=== PATIENT | male | born 1950 | race Caucasian/White ===

== ENCOUNTER 2016-07-06 01:50 | Inpatient (IN) | payer OTHER, BC ==
[~2016-07-06] VITALS: Ht 167.6 cm; Wt 85.7 kg
[~2016-07-06 01:50] MED LIST: INSU10SU8 SUBQ; METO50TE2 PO; NIFE60TE5 PO; SACC250C4 PO; [UNRECOGNIZED DRUG - CODE] PO
--- NOTE | 2016-07-06 01:51 | NUR ---
PRAVIN ALS TO ER BED 1
[2016-07-06 02:01] VITALS: BP 165/96
--- NOTE | 2016-07-06 02:20 | NUR ---
65/M BIBA C/O SOB, HE WOKEUP WITH NIGHT SWEATS, NO CHEST PAIN NOTED, SEEN IN [facility] LAST WEEK AND DX, PNA. AAOx4, BREATHING EVEN AND EFFORTLESS. PT STATES NO PAIN AT THIS TIME. ERMD NOTIFIED OF PATIENT STATUS.
[2016-07-06 02:23] LABS: BASOPHILS # (AUTO) 0.3 K/uL (0.00-0.22); BASOPHILS % (AUTO) 2.4 % (0.0-2.0); EOSINOPHILS # (AUTO) 1.1 K/uL (0-0.4); EOSINOPHILS % (AUTO) 9.7 % (0.0-4.0); HEMATOCRIT 34.9 % (36-52); HEMOGLOBIN 11.3 g/dL (12.0-18.0); LYMPHOCYTES # (AUTO) 1.4 K/uL (2.0-11.5); LYMPHOCYTES % (AUTO) 13.1 % (20.5-51.1); MEAN CORPUSCULAR HEMOGLOBIN 34 pg (27-31); MEAN CORPUSCULAR HGB CONC 32 g/dL (33-37); MEAN CORPUSCULAR VOLUME 106 fL (80-94); MONOCYTES # (AUTO) 1.3 K/uL (0.8-1.0); MONOCYTES % (AUTO) 11.6 % (1.7-9.3); NEUTROPHILS # (AUTO) 6.9 K/uL (1.8-7.7); NEUTROPHILS % (AUTO) 63.2 % (42.2-75.2); PLATELET COUNT (AUTO) 305 K/uL (140-450); RED BLOOD CELL COUNT(AUTO) 3.31 MIL/uL (4.20-6.10); RED CELL DISTRIBUTION WIDTH 14.6 % (11.6-13.7)
--- NOTE | 2016-07-06 02:27 | NUR ---
PT REFUSES TO HAVE BEDRAILS UP. CHARGE NURSE NOTIFIED.
[2016-07-06 02:37] LABS: ALBUMIN 3.7 g/dL (3.4-5.0); ANION GAP 15.1 (8-16); CALCIUM 8.5 mg/dL (8.5-10.1); CARBON DIOXIDE 27.1 mmol/L (21-32); POTASSIUM 4.2 mmol/L (3.5-5.1); TOTAL BILIRUBIN 0.3 mg/dL (0.0-1.0)
[2016-07-06 02:38] LABS: INR 1.1 (0.8-1.2); PARTIAL THROMBOPLASTIN TIME 29.4 secs (22-35.6)
[2016-07-06 02:45] LABS: CREATININE 8.3 mg/dL (0.6-1.3)
--- NOTE | 2016-07-06 02:45 | NUR ---
Patient being evaluated by physician at bedside.
[2016-07-06] MEDS ORDERED: METOPROLOL 50 MG TAB PO ONE (02:50)
[2016-07-06] MEDS ORDERED: hydrALAZINE 20 MG/ML VIAL IVP ONE (02:50)
[2016-07-06] MEDS ORDERED: CEFEPIME 1,000 MG in DEXTROSE 5% 50 ML IV ONE (02:55)
[2016-07-06] MEDS ORDERED: LEVOFLOXACIN 750 MG/D5W PREMIX 150 ML IV ONE (02:55)
[2016-07-06] MEDS ORDERED: CEFEPIME 1,000 MG VIAL ONE (03:17)
[2016-07-06 03:28] LABS: LACTIC ACID 1.3 mmol/L (0.4-2.0)
[2016-07-06] MEDS ORDERED: ALBUTEROL SULFATE/IPRATROPIU 3 ML SOL IH ONE (03:30)
--- NOTE | 2016-07-06 03:34 | NUR ---
TAKE PT. TO CT
--- NOTE | 2016-07-06 04:40 | NUR ---
PT RESTING.PT STABLE. DENIES ANY PAIN AT THIS TIME. WILL CONTINUE TO MONITOR.
--- NOTE | 2016-07-06 05:35 | NUR ---
PATIENT RESTING; VSS; PATIENT POSITIONED FOR COMFORT; HOB ELEVATED; BEDRAILS UP X2; BED DOWN. ER MD MADE AWARE OF PT STATUS.
[2016-07-06] MEDS ORDERED: HYDROcodone/APAP 5/325 MG 1 TAB TAB PO PRN (06:20)
[2016-07-06] MEDS ORDERED: DEXTROSE 50% 50 ML SYR IVP PRN (06:20)
[2016-07-06] MEDS ORDERED: LORazepam 2 MG/ML VIAL IVP PRN (06:20)
--- NOTE | 2016-07-06 06:59 | NUR ---
Note michelet in EDM - 07/06/16 at 0709 by KEAGAN Patient will be admitted to care of DR. REGALADO. Admited to TELE. Will go to room 121B. Belongings list completed. Report to IMANI MANLEY.
--- NOTE | 2016-07-06 07:09 | NUR ---
Patient will be admitted to care of DR JEREZ. Admited to TELE. Will go to room 118. Belongings list completed. Report to IMANI MANLEY.
[2016-07-06 08:00] VITALS: BP 167/79
--- NOTE | 2016-07-06 08:00 | NUR ---
Admitted from ED, with chief complaint of SOB , 65 y/o ,Male, Cooperative, oriented to call light, bed, phone,television, bathroom, smoking policy, visiting hours, procedures, ID bracelet on. Belongings list checked. breathing even and unlabored. pt on room air. with iv heplock on right posterior forearm g20. denies any pain or discomfort at this time. positive bowel sounds on four quadrants. no complaints on bladder and bowel elimination. pt independent, able to take care of self. av shunt noted on left upper chest. dry scab and healed abrasion noted on right marks. safety precaution in place, call light within reach.
--- NOTE | 2016-07-06 08:01 | NUR ---
ATTEMPTED TO OBTAINED SPUTUM SAMPLE, PT UNABLE TO PRODUCE ANY PHLEGM STATES HE DOES NOT HAVE A COUGH. B.S CLEAR BILATERALLY. SPECIMEN CUP AT PT BEDSIDE AND PT AWARE OF NEED FOR SPECIMEN.
--- NOTE | 2016-07-06 08:08 | NUR ---
PATIENT HAS BEEN SCREENED AND CATEGORIZED MODERATE NUTRITION RISK. PATIENT WILL BE SEEN WITHIN 3-5 DAYS OF ADMISSION. 07/08/16-07/10/[address]
[2016-07-06] MEDS: BLOOD GLUCOSE MONITORING 1 DEV DEV FS SCH ×4 (08:27→21:16)
--- NOTE | 2016-07-06 08:40 | NUR ---
SPOKE TO MILAN GALEAS AT ACUTE DIALYSIS AND MADE HER AWARE OF PT'S SCHEDULE FOR HD TODAY.
[2016-07-06] MEDS: INSULIN NPH HUM/REG INSULIN HM 100 UNIT/ML 10 ML VIAL SQ SCH ×2 (09:00→21:00)
[2016-07-06] MEDS: NIFEdipine 60 MG TABER PO SCH (09:00)
[2016-07-06] MEDS: METOPROLOL SUCCINATE 50 MG TABER PO SCH (09:00)
[2016-07-06 12:00] VITALS: BP 148/72
--- NOTE | 2016-07-06 12:00 | NUR ---
PHOTO TAKEN ON RIGHT GLEASON DRY SCAB AND RIGHT FOOT ABRASION (NO DRAINAGE), OPEN TO AIR.
[2016-07-06] MEDS ORDERED: LOPERAMIDE 2 MG CAP PO PRN (12:35)
[2016-07-06] MEDS: INSULIN LISPRO SLIDING SCALE 100 UNITS/ML VIAL SUBQ PRN ×2 (12:43→21:15)
[2016-07-06] MEDS ORDERED: LORATADINE 10 MG TAB PO SCH (12:48)
--- NOTE | 2016-07-06 13:00 | NUR ---
HEMODIALYSIS STARTED AT THE BEDSIDE. PT AWAKE, ALERT, WATCHING TV. NO SOB NOTED.
[2016-07-06] MEDS: FLUTICASONE NASAL 50 MCG/ACTUATION 16 GM BTL NS SCH (14:33)
[2016-07-06] MEDS ORDERED: PNEUMOCOCCAL VACCINE 23 MCG/0.5 ML VIAL IMVAC SCH (14:50)
[2016-07-06 16:00] VITALS: BP 117/65
--- NOTE | 2016-07-06 16:30 | NUR ---
DIALYSIS DONE WITH 2L OUTPUT. VITAL SIGNS STABLE. PT ASLEEP. NO SOB NOTED.
[2016-07-06] MEDS: ONDANSETRON 4 MG/2 ML VIAL IVP PRN (18:32)
[2016-07-06] MEDS: ACETAMINOPHEN 325 MG TAB PO PRN (19:10)
--- NOTE | 2016-07-06 19:12 | NUR ---
RECEIVED PT REPORT FROM CARI Alexandre RN AND MIRTHA DIALLO ORIENTEE, FOR PT CONTINUITY OF CARE AT PT BEDSIDE. PT NOTED STABLE WATCHING TV. NO S/S OF ACUTE DISTRESS. CALL LIGHT WITHIN REACH.
--- NOTE | 2016-07-06 19:30 | NUR ---
PT ENDORSED TO IMANI PASTOR. PT ON STABLE CONDITION.
--- NOTE | 2016-07-06 19:42 | NUR ---
SHIFT ASSESSMENT DONE AT THIS TIME. PT IS A/O X4, ON S/S OF ACUTE DISTRESS. DISCUSSED PLAN OF CARE WITH PT, VERBALIZED UNDERSTANDING. PT ABLE TO FOLLOW COMMANDS AND VERBALIZE NEEDS. VITAL SIGNS ARE STABLE, PT ON ROOM AIR WITH OXYGEN SATURATION AT 95%. PT DENIES N/V/D, SOB AND OR CHEST PAIN. PT IS AFEBRILE. LUNG SOUNDS ARE CLEAR AND BOWEL SOUNDS ARE ACTIVE. IV ACCESS TO RT FOREARM #20G, PATENT AND INTACT. PT HAS LEFT AV SHUNT TO LEFT UPPER ARM, POSITIVE FOR THRILL AND BRUIT, SIGN POSTED. SKIN INTACT, ONLY NOTED DRY SCAB TO LEFT LOWER LEG, DRY AND INTACT. DISCUSSED PLAN OF CARE WITH PT, VERBALIZED UNDERSTANDING. CALL LIGHT WITHIN EASY REACH. WILL CONTINUE TO MONITOR.
[2016-07-06 20:00] VITALS: BP 110/63
--- NOTE | 2016-07-06 21:16 | NUR ---
PT REFUSED HUMILIN 70/30 INSULIN AT THIS TIME. PT BLOOD GLUCOSE IS 220, REQUESTED ONLY HUMALOG PER SLIDING SCALE. PROVIDED INSULIN HUMALOG PER MD ORDERS, SEE eMAR. PT IS ASYMPTOMATIC. NO S/S OF ACUTE DISTRESS NOTED. CALL LIGHT WITHIN REACH.
--- NOTE | 2016-07-06 22:00 | NUR ---
DR. ROBERTS AT PT BEDSIDE, UPDATE GIVEN TO DR. ROBERTS. NO NEW ORDERS RECEIVED.
[2016-07-07] VITALS: BP 125/59
--- NOTE | 2016-07-07 00:20 | NUR ---
PT VITAL SIGNS REMAIN STABLE, NO S/S OF ACUTE DISTRESS NOTED, PT DENIES CHEST PAIN OR SOB. CALL LIGHT WITHIN EASY REACH. Addendum: 07/07/16 at 0116 by Tania Caldwell RN ALSO PT IS NOW ON NASAL CANNULA. OXYGEN SATURATION NOTED AT 97%.
--- NOTE | 2016-07-07 02:24 | NUR ---
PT NOTED SLEEPING WELL, NO ACUTE DISTRESS NOTED. CALL LIGHT WITHIN REACH. NASAL CANNULA STILL IN PLACE.
[2016-07-07 04:00] VITALS: BP 146/73
--- NOTE | 2016-07-07 04:10 | NUR ---
VITAL SIGNS REMAIN STABLE, NO S/S OF ACUTE DISTRESS. CALL LIGHT STILL IN REACH.
[2016-07-07 06:03] LABS: BASOPHILS # (AUTO) 0.1 K/uL (0.00-0.22); BASOPHILS % (AUTO) 1.2 % (0.0-2.0); EOSINOPHILS # (AUTO) 0.5 K/uL (0-0.4); HEMATOCRIT 39.2 % (36-52); HEMOGLOBIN 12.8 g/dL (12.0-18.0); LYMPHOCYTES # (AUTO) 1.2 K/uL (2.0-11.5); LYMPHOCYTES % (AUTO) 11.3 % (20.5-51.1); MEAN CORPUSCULAR HEMOGLOBIN 35 pg (27-31); MEAN CORPUSCULAR HGB CONC 33 g/dL (33-37); MEAN CORPUSCULAR VOLUME 106 fL (80-94); MONOCYTES % (AUTO) 9.2 % (1.7-9.3); NEUTROPHILS # (AUTO) 7.6 K/uL (1.8-7.7); NEUTROPHILS % (AUTO) 73.3 % (42.2-75.2); PLATELET COUNT (AUTO) 299 K/uL (140-450); RED BLOOD CELL COUNT(AUTO) 3.69 MIL/uL (4.20-6.10); RED CELL DISTRIBUTION WIDTH 15.1 % (11.6-13.7); WHITE BLOOD COUNT (AUTO) 10.4 K/uL (4.8-10.8)
[2016-07-07 06:26] LABS: ANION GAP 11.9 (8-16); CALCIUM 8.3 mg/dL (8.5-10.1); CARBON DIOXIDE 30.6 mmol/L (21-32); POTASSIUM 4.5 mmol/L (3.5-5.1)
[2016-07-07 06:28] LABS: MAGNESIUM 2.1 mg/dL (1.8-2.4); PHOSPHORUS 5.6 mg/dL (2.5-4.9)
[2016-07-07] MEDS: BLOOD GLUCOSE MONITORING 1 DEV DEV FS SCH ×4 (06:29→21:25)
--- NOTE | 2016-07-07 06:29 | NUR ---
BLOOD GLUCOSE WNL, NO INSULIN NEEDED. PT REMAINS STABLE.
[2016-07-07 06:45] LABS: CREATININE 6.3 mg/dL (0.6-1.3)
--- NOTE | 2016-07-07 07:29 | NUR ---
ENDORSED PT TO RIGOBERTO-LINE ORDERING CLINICIAN AT PT BEDSIDE FOR CONTINUITY OF CARE. PT NOTED STABLE, NO ACUTE DISTRESS NOTED.
--- NOTE | 2016-07-07 07:35 | NUR ---
PT LYING IN BED COMFORTABLY AND WAS IN NO DISTRESS. PT AAOX4 AND VOICED NO C/O DISCOMFORT. SHIFT ASSESSMENT DONE AND CHARTED. PLAN OF CARE, MEDS, TREATMENTS AND SAFETY DISCUSSED WITH PT AND PT VERBALIZED UNDERSTANDING. WILL CONTINUE TO MONITOR PT.
[2016-07-07 08:30] VITALS: BP 140/65
[2016-07-07] MEDS: NIFEdipine 60 MG TABER PO SCH (09:00)
[2016-07-07] MEDS: LORATADINE 10 MG TAB PO SCH (09:02)
[2016-07-07] MEDS: METOPROLOL SUCCINATE 50 MG TABER PO SCH (09:02)
[2016-07-07] MEDS: ONDANSETRON 4 MG/2 ML VIAL IVP PRN (09:03)
--- NOTE | 2016-07-07 09:03 | NUR ---
PT MEDICATED WITH ZOFRAN PER PRN ORDER FOR C/O NAUSEA. NO EMESIS NOTED AT THIS TIME. PT ALSO C/O LOOSE BM X3 BUT PT HAD NO ORDER FOR DIARRHEA. Alison LOVE WAS IN TO SEE PT AND MD NOTIFIED OF SAME AND MD LEFT NEW ORDERS.
[2016-07-07] MEDS: FLUTICASONE NASAL 50 MCG/ACTUATION 16 GM BTL NS SCH (09:05)
[2016-07-07] MEDS: LEVOFLOXACIN 250 MG/D5 PREMIX 50 ML IV SCH (09:08)
[2016-07-07] MEDS: INSULIN NPH HUM/REG INSULIN HM 100 UNIT/ML 10 ML VIAL SQ SCH ×2 (10:15→21:00)
[2016-07-07] MEDS: LOPERAMIDE 2 MG CAP PO PRN (12:36)
[2016-07-07] MEDS: CALCIUM ACETATE 667 MG TAB PO SCH ×2 (12:36→18:06)
--- NOTE | 2016-07-07 12:36 | NUR ---
IMODIUM GIVEN PER PRN ORDER FOR C/O LOOSE STOOLS. NO FIRTHER C/O NAUSEA MADE BY PT. WILL CONTINUE TO CHECK ON PT. PT UP ON CHAIR FOR LUNCH AND TOLERATING IT WELL.
[2016-07-07 12:40] VITALS: BP 90/52
[2016-07-07] MEDS: ACETAMINOPHEN 325 MG TAB PO PRN (12:53)
--- NOTE | 2016-07-07 13:00 | NUR ---
PT MEDICATED WITH TYLENOL 650 MG PO FOR C/O HEADACHE 10/22. WILL CONTINUE TO MONITOR PT.
[2016-07-07 17:12] VITALS: BP 123/61
--- NOTE | 2016-07-07 18:30 | NUR ---
NO FURTHER C/O NAUSEA, LOOSE BM, OR HEADACHE MADE BY PT. PT TOLERATING DIET AND FLUID FAIRLY WELL.
--- NOTE | 2016-07-07 19:10 | NUR ---
RECEIVED REPORT FROM RIGOBERTO DIALLO FOR PT CONTINUITY OF CARE. PT STABLE. NO DISTRESS.
--- NOTE | 2016-07-07 19:10 | NUR ---
REPORT GIVEN TO DAWIT DIALLO. PT SITTING UP IN CHAIR AND WAS IN NO PAIN /DISCOMFORT
--- NOTE | 2016-07-07 19:50 | NUR ---
SHIFT ASSESSMENT DONE. PT IS A/O X4, ON S/S OF ACUTE DISTRESS. DISCUSSED PLAN OF CARE WITH PT, VERBALIZED UNDERSTANDING. FOLLOWS COMMANDS AND VERBALIZE NEEDS. VITAL SIGNS ARE STABLE, ON ROOM AIR WITH OXYGEN SATURATION AT 97%. PT DENIES N/V/D, SOB AND OR CHEST PAIN. AFEBRILE. LUNG SOUNDS ARE CLEAR AND BOWEL SOUNDS ARE ACTIVE. IV ACCESS TO RT FOREARM #20G, PATENT AND INTACT. PT HAS LEFT AV SHUNT TO LEFT UPPER ARM, POSITIVE FOR THRILL AND BRUIT, SIGN POSTED. DRY SCAB TO RT LOWER LEG, DRY AND INTACT, SEE WOUND ASSESSMENT. DISCUSSED PLAN OF CARE WITH PT, VERBALIZED UNDERSTANDING. CALL LIGHT WITHIN EASY REACH. WILL CONTINUE TO MONITOR.
[2016-07-07 20:00] VITALS: BP 118/64
--- NOTE | 2016-07-07 21:25 | NUR ---
PT BLOOD GLUCOSE WNL. NO ACUTE DISTRESS NOTED. PT REMAINS STABLE. CALL LIGHT WITHIN REACH.
--- NOTE | 2016-07-07 23:55 | NUR ---
PT VITAL SIGNS REMAINS STABLE, NO ACUTE DISTRESS. CALL LIGHT WITHIN REACH.
[2016-07-08] VITALS: BP 126/68
--- NOTE | 2016-07-08 02:10 | NUR ---
PT NOTED IN CHAIR AWAKE WATCHING TV. NO S/S OF ACUTE RESPIRATORY DISTRESS. CALL LIGHT WITHIN REACH.
[2016-07-08 04:00] VITALS: BP 128/61
--- NOTE | 2016-07-08 04:25 | NUR ---
PT VITAL SIGNS REMAIN STABLE. NO S/S OF ACUTE DISTRESS NOTED. CALL LIGHT WITHIN REACH.
[2016-07-08 06:56] LABS: BASOPHILS # (AUTO) 0.1 K/uL (0.00-0.22); EOSINOPHILS # (AUTO) 0.9 K/uL (0-0.4); HEMATOCRIT 38.1 % (36-52); HEMOGLOBIN 12.2 g/dL (12.0-18.0); LYMPHOCYTES # (AUTO) 1.7 K/uL (2.0-11.5); LYMPHOCYTES % (AUTO) 17.3 % (20.5-51.1); MEAN CORPUSCULAR HEMOGLOBIN 34 pg (27-31); MEAN CORPUSCULAR HGB CONC 32 g/dL (33-37); MEAN CORPUSCULAR VOLUME 106 fL (80-94); MONOCYTES # (AUTO) 0.7 K/uL (0.8-1.0); MONOCYTES % (AUTO) 6.9 % (1.7-9.3); NEUTROPHILS # (AUTO) 6.5 K/uL (1.8-7.7); NEUTROPHILS % (AUTO) 65.8 % (42.2-75.2); PLATELET COUNT (AUTO) 303 K/uL (140-450); RED BLOOD CELL COUNT(AUTO) 3.61 MIL/uL (4.20-6.10); RED CELL DISTRIBUTION WIDTH 14.7 % (11.6-13.7); WHITE BLOOD COUNT (AUTO) 9.9 K/uL (4.8-10.8)
--- NOTE | 2016-07-08 07:02 | NUR ---
PT REFUSED BLOOD GLUCOSE CHECK AT THIS TIME. NO S/S OF DISTRESS. PT STABLE. CALL LIGHT WITHIN REACH.
[2016-07-08] MEDS: BLOOD GLUCOSE MONITORING 1 DEV DEV FS SCH (07:03)
[2016-07-08 07:08] LABS: ANION GAP 16.5 (8-16); CARBON DIOXIDE 25.9 mmol/L (21-32); POTASSIUM 4.4 mmol/L (3.5-5.1)
[2016-07-08 07:15] LABS: CREATININE 8.3 mg/dL (0.6-1.3); MAGNESIUM 2.4 mg/dL (1.8-2.4); PHOSPHORUS 5.3 mg/dL (2.5-4.9)
--- NOTE | 2016-07-08 07:56 | NUR ---
ASSUMED CONTINUITY OF CARE FROM DAWIT WAYNE. NO SIGNS AND SYMPTOMS OF ACUTE DISTRESS NOTED. INITIAL ASSESSMENT DONE. EXPLAINED DIAGNOSIS, PLAN OF CARE, PAIN MANAGEMENT TEACHING, USE OF CALL LIGHT/BED/TV/BATHROOM. VERBALIZED UNDERSTANDING. FALL PRECAUTION APPLIED. CALL LIGHT WITHIN REACH.
[2016-07-08 08:00] VITALS: BP 129/71
--- NOTE | 2016-07-08 08:00 | NUR ---
Patient's Plan of Care was discussed and reviewed with CASHIER HOST/HOSTESS: ABRAHAM BARAJAS
[2016-07-08] MEDS: CALCIUM ACETATE 667 MG TAB PO SCH (08:44)
[2016-07-08] MEDS: NIFEdipine 60 MG TABER PO SCH (08:45)
[2016-07-08] MEDS: LORATADINE 10 MG TAB PO SCH (08:46)
[2016-07-08] MEDS: LOPERAMIDE 2 MG CAP PO PRN (08:46)
[2016-07-08] MEDS: METOPROLOL SUCCINATE 50 MG TABER PO SCH (08:46)
[2016-07-08] MEDS: FLUTICASONE NASAL 50 MCG/ACTUATION 16 GM BTL NS SCH (08:48)
[2016-07-08] MEDS: INSULIN NPH HUM/REG INSULIN HM 100 UNIT/ML 10 ML VIAL SQ SCH (08:49)
[2016-07-08] MEDS: LEVOFLOXACIN 250 MG/D5 PREMIX 50 ML IV SCH ×2 (09:00→09:05)
[2016-07-08] MEDS ORDERED: VIT-B COMP/VIT-C/FOLIC ACID 1 TAB PO SCH (09:00)
--- NOTE | 2016-07-08 09:18 | NUR ---
REFUSED LEVAQUIN 250 MG IVPB AND REFUSED IV INSERTION. EXPLAINED ABOUT MD ORDER AND IMPORTANCE OF MEDICINE. VERBALIZED UNDERSTANDING BUT STILL REFUSED. PT. STATES "I DON'T NEED IT, ANYWAY I'M GOING HOME TODAY. " INFORMED CHARGE NURSE DANYA REARDON -IMANI.
--- NOTE | 2016-07-08 10:10 | NUR ---
DENNIS YBARRA CAME, CHECKED PT. CHART, AND SEEN PT..
[2016-07-08] MEDS ORDERED: IMO2 PO (10:16)
[2016-07-08] MEDS ORDERED: PNE23I IMVAC (10:16)
[2016-07-08] MEDS ORDERED: NEP PO (10:16)
[2016-07-08] MEDS ORDERED: LORA10TA19 PO (10:16)
[2016-07-08] MEDS ORDERED: LEVO750T2 PO (10:16)
[2016-07-08] MEDS ORDERED: PHO667 PO (10:16)
[2016-07-08] MEDS ORDERED: FLONAS NS (10:16)
--- NOTE | 2016-07-08 10:36 | NUR ---
EXPLAINED MD D/C ORDER, D/C INSTRUCTIONS AND TEACHING, MD FOLLOW-UP, MD D/C PRESCRIPTION LIST EDUCATION, DIET, DISEASE MANAGEMENT, DM EDUCATION, PAIN MANAGEMENT TEACHING. VERBALIZED UNDERSTANDING.
--- NOTE | 2016-07-08 11:20 | NUR ---
D/C HOME VIA WHEELCHAIR. AWAKE, ALERT, AND ORIENTED X4. SPEECH CLEAR. NO C/O PAIN. NO SOB, NOTED. IN STABLE CONDITION. INFORMED CHARGE NURSE DANYA WAYNE.
== END 2016-07-08 11:20 | disposition home or self-care (01) | DRG 871 ==
LOC: MED 01:50 → MTU 03:39
PROVIDERS: ADMIT Preventive Medicine Preventive Medicine/Occupational Environmental Medicine; ATTEND Preventive Medicine Preventive Medicine/Occupational Environmental Medicine
PROC: 5A1D00Z (ICD-10-PCS; principal; 2016-07-06)
DX: A41.9 Sepsis, unspecified organism (principal); J18.9 Pneumonia, unspecified organism; N18.6 End stage renal disease; I13.2 Hypertensive heart and chronic kidney disease with heart failure and with stage 5 chronic kidney disease, or end stage renal disease; J44.0 Chronic obstructive pulmonary disease with (acute) lower respiratory infection; D63.8 Anemia in other chronic diseases classified elsewhere; E11.21 Type 2 diabetes mellitus with diabetic nephropathy; E11.22 Type 2 diabetes mellitus with diabetic chronic kidney disease; E11.65 Type 2 diabetes mellitus with hyperglycemia; E83.39 Other disorders of phosphorus metabolism; E83.52 Hypercalcemia; I16.0 Hypertensive urgency; Y95 Nosocomial condition; Z99.2 Dependence on renal dialysis; Z88.0 Allergy status to penicillin; Z79.2 Long term (current) use of antibiotics; Z79.899 Other long term (current) drug therapy
CPT/HCPCS: 36415; 70450; 71010; 80048; 80053; 82948; 83605; 83735; 83880; 84100; 84484; 85025; 85379; 85610; 85651; 85730; 86140; 87040; 87081; 93005; 94640; 96365; 96366; 96367; 96375; 99285; J0360; J0692; J1815; J1956; J2405; J7030; J7060; J7620; Q0092

== ENCOUNTER 2016-07-14 14:26 | Emergency (ER) | payer OTHER, BC ==
[~2016-07-14] VITALS: Ht 167.6 cm; Wt 86.2 kg
[2016-07-14 14:26] VITALS: BP 147/96
[~2016-07-14 14:26] MED LIST changes: +FLONAS NS; +IMO2 PO; +LEVO750T2 PO; +LORA10TA19 PO; +NEP PO; +PHO667 PO; +PNE23I IMVAC; -[UNRECOGNIZED DRUG - CODE] PO
--- NOTE | 2016-07-14 14:26 | NUR ---
Patient BIBA BLS, transferred to bed 8. RN evaluating patient at bedside.
--- NOTE | 2016-07-14 14:35 | NUR ---
[facility]AL[facility] OF MOUTH PAIN X3 DAY THAT RADIATES TO HEAD W/ PAIN SCALE OF 8/10. PER SIDE TRIMMER PT REQUESTED TRANSPORT TO A DENTAL OFFICE, BUT WAS INFORMED COULD ONLY TRANSPORT TO HOSPITAL. HX DM, ESRD ON DIALYSIS 3XWEEKLY, COPD, CHF;AAOX4;NO ACUTE DISTRESS NOTED AT THIS TIME;DENIES CP/SOB/F/COUGH;HOB ELEVATED;NEEDS ATTENDED;SAFETY PRECAUTION INSTITUTED; MADE AWARE OF PT'S CONDITION.
--- NOTE | 2016-07-14 15:02 | NUR ---
DR MOSER AT BEDSIDE
[2016-07-14] MEDS ORDERED: CLINDAMYCIN 150 MG CAP PO ONE (15:10)
[2016-07-14] MEDS ORDERED: ACETAMINOPHEN/CODEINE 300/30MG 1 TAB PO ONE (15:30)
--- NOTE | 2016-07-14 15:56 | NUR ---
Patient discharged with v/s stable. Written and verbal after care instructions given and explained. Patient alert, oriented and verbalized understanding of instructions. Ambulatory with steady gait. All questions addressed prior to discharge. ID band removed. Patient advised to follow up with PMD. Rx of TYLENOL W/ CODEINE AND CLINDAMYCIN given. Patient educated on indication of medication including possible reaction and side effects. Opportunity to ask questions provided and answered. ADVISED PT TO FOLLOEW UP W/ HIS DENTIST.
[2016-07-14 15:57] VITALS: BP 144/96
== END 2016-07-14 15:56 | disposition home or self-care (01) ==
LOC: MED 14:26
DX: K04.7 Periapical abscess without sinus (principal); I12.9 Hypertensive chronic kidney disease with stage 1 through stage 4 chronic kidney disease, or unspecified chronic kidney disease; E11.22 Type 2 diabetes mellitus with diabetic chronic kidney disease; N18.9 Chronic kidney disease, unspecified; J44.9 Chronic obstructive pulmonary disease, unspecified; Z88.0 Allergy status to penicillin; Z99.2 Dependence on renal dialysis
CPT/HCPCS: 99283

== ENCOUNTER 2016-09-12 22:06 | Emergency (ER) | payer OTHER, BC ==
[~2016-09-12] VITALS: Ht 167.6 cm; Wt 86.2 kg
[~2016-09-12 22:06] MED LIST changes: +CLARITIN10 M1 PO; +CLINDAMYCIN150 MG PO; +CRESTOR5 MG PO; -FLONAS NS; +FLONASE NASAL50 MCG NS; +FLORASTOR250 MG PO; -IMO2 PO; +IMODIUM2 M1 PO; -INSU10SU8 SUBQ; +LEVAQUIN250 MG PO; +LEVAQUIN500 MG PO; +LEVAQUIN750 MG PO; -LEVO750T2 PO; -LORA10TA19 PO; -METO50TE2 PO; -NEP PO; +NEPHRO-VITE1 TA1 PO; -NIFE60TE5 PO; +NOVOLIN 70/30 710 M1 SUBQ; -PHO667 PO; +PHOSLO667 M1 PO; -PNE23I IMVAC; +PNEUMOVAX IMVAC; +PROCARDIA XL60 MG PO; -SACC250C4 PO; +TOPROL XL50 MG PO; +ZITHROMAX Z-PA250 M1 PO
[2016-09-12 22:24] VITALS: BP 125/84
--- NOTE | 2016-09-12 22:34 | NUR ---
BIBA TO ER BED 8
--- NOTE | 2016-09-12 22:40 | NUR ---
BIBA FOR ELEVATED BLOOD SUGAR, STATES HE DID NOT TAKE HIS INSULIN TODAY. BLOOD SUGAR UPON ARRIVAL IN ED WAS 304. PT IS KNOW DIABETIC AND HAS SHUNT IN LEFT ARM. PT HAS DIALYSIS ON //. PT DENIES N/V/D; AAOX4 WITH EVEN AND STEADY GAIT; LUNGS CLEAR BL; HR EVEN AND REGULAR; PT DENIES ANY FEVER, CP, OR COUGH AT THIS TIME; PATIENT STATES PAIN OF 0/10 AT THIS TIME; VSS; PATIENT POSITIONED FOR COMFORT; HOB ELEVATED; BEDRAILS UP X2; BED DOWN. ER MD MADE AWARE OF PT STATUS.
--- NOTE | 2016-09-12 23:09 | NUR ---
LABS DRAWN AT BEDSIDE
--- NOTE | 2016-09-12 23:17 | NUR ---
X-Ray at bedside.
--- NOTE | 2016-09-12 23:27 | NUR ---
PT TRIED TO GIVE UA, UNABLE TO VOID AT THIS TIME.
--- NOTE | 2016-09-12 23:29 | NUR ---
DR HALL MADE AWARE THAT PT UNABLE TO VOID AT THIS TIME.
--- NOTE | 2016-09-12 23:29 | NUR ---
EKG BEING DONE AT BEDSIDE
[2016-09-13 00:35] VITALS: BP 156/86
--- NOTE | 2016-09-13 00:35 | NUR ---
Patient discharged with v/s stable. Written and verbal after care instructions given and explained. Patient verbalized understanding. Ambulatory with steady gait. All questions addressed prior to discharge. Advised to follow up with PMD.
== END 2016-09-13 00:35 | disposition home or self-care (01) ==
LOC: MED 22:06
DX: R53.1 Weakness (principal); J44.9 Chronic obstructive pulmonary disease, unspecified; E11.9 Type 2 diabetes mellitus without complications; I10 Essential (primary) hypertension; Z88.0 Allergy status to penicillin

== ENCOUNTER 2017-01-03 00:35 | Emergency (ER) | payer OTHER, BC ==
[~2017-01-03] VITALS: Ht 170.2 cm; Wt 90.7 kg
[~2017-01-03 00:35] MED LIST changes: -CLARITIN10 M1 PO; -CLINDAMYCIN150 MG PO; -CRESTOR5 MG PO; +FLONAS NS; -FLONASE NASAL50 MCG NS; +FLOR250 PO; -FLORASTOR250 MG PO; +IMO2 PO; -IMODIUM2 M1 PO; +INSU10SU8 SUBQ; -LEVAQUIN250 MG PO; -LEVAQUIN500 MG PO; -LEVAQUIN750 MG PO; +LEVO750T2 PO; +LORA10TA19 PO; +METO50TE2 PO; +NEP PO; -NEPHRO-VITE1 TA1 PO; +NIFE60TE5 PO; -NOVOLIN 70/30 710 M1 SUBQ; +PHO667 PO; -PHOSLO667 M1 PO; +PNE23I IMVAC; -PNEUMOVAX IMVAC; -PROCARDIA XL60 MG PO; -TOPROL XL50 MG PO; -ZITHROMAX Z-PA250 M1 PO
--- NOTE | 2017-01-03 00:35 | NUR ---
BIBA TO ER BED 6
--- NOTE | 2017-01-03 00:37 | NUR ---
66/M vidhi from [facility] for evaluation of nausea and dizziness since this am. Denies vomiting. Denies fever or chills. Denies diarrhea. Pt states he had dialysis today. Left upper arm shunt. AOX4, ambulates with a cane. VSS.
[2017-01-03 00:48] VITALS: BP 131/82
--- NOTE | 2017-01-03 01:01 | NUR ---
Patient being evaluated by physician at bedside.
[2017-01-03 01:29] LABS: BASOPHILS # (AUTO) 0.1 K/uL (0.00-0.22); EOSINOPHILS # (AUTO) 0.2 K/uL (0-0.4); EOSINOPHILS % (AUTO) 2.1 % (0.0-4.0); HEMATOCRIT 40.8 % (36-52); HEMOGLOBIN 13.2 g/dL (12.0-18.0); LYMPHOCYTES # (AUTO) 1.2 K/uL (2.0-11.5); LYMPHOCYTES % (AUTO) 11.5 % (20.5-51.1); MEAN CORPUSCULAR HEMOGLOBIN 33 pg (27-31); MEAN CORPUSCULAR HGB CONC 32 g/dL (33-37); MEAN CORPUSCULAR VOLUME 102 fL (80-94); MONOCYTES # (AUTO) 0.8 K/uL (0.8-1.0); MONOCYTES % (AUTO) 7.4 % (1.7-9.3); NEUTROPHILS # (AUTO) 8.4 K/uL (1.8-7.7); PLATELET COUNT (AUTO) 227 K/uL (140-450); RED CELL DISTRIBUTION WIDTH 14.5 % (11.6-13.7); WHITE BLOOD COUNT (AUTO) 10.7 K/uL (4.8-10.8)
[2017-01-03 01:44] LABS: ALBUMIN 4.2 g/dL (3.4-5.0); CARBON DIOXIDE 27.9 mmol/L (21-32); POTASSIUM 3.9 mmol/L (3.5-5.1); TOTAL BILIRUBIN 0.3 mg/dL (0.0-1.0)
[2017-01-03 01:46] LABS: CREATININE 6.7 mg/dL (0.7-1.3)
--- NOTE | 2017-01-03 02:14 | NUR ---
Pt is up for discharge. Pt unable to obtain a ride at this time. Pt is asking us to call [employer] but there is no number to call. I tried to call the patient 's son with no answer. Pt states a taxi is too expensive.
[2017-01-03] MEDS ORDERED: ONDANSETRON 4 MG ODT PO ONE (02:30)
--- NOTE | 2017-01-03 02:31 | NUR ---
Taxi voucher called. ETA 30-45mins.
[2017-01-03 02:42] VITALS: BP 131/82
--- NOTE | 2017-01-03 02:42 | NUR ---
Patient discharged with v/s stable. Written and verbal after care instructions given and explained. Patient alert, oriented and verbalized understanding of instructions. Ambulatory with steady gait. All questions addressed prior to discharge. ID band removed. Patient advised to follow up with PMD. Pt provided with Taxi voucher and is waiting in ER lobby for taxi. Rx of Zofran 4mg ODT given. Patient educated on indication of medication including possible reaction and side effects. Opportunity to ask questions provided and answered.
== END 2017-01-03 02:42 | disposition home or self-care (01) ==
LOC: MED 00:35
DX: R11.0 Nausea (principal); J44.1 Chronic obstructive pulmonary disease with (acute) exacerbation; I12.9 Hypertensive chronic kidney disease with stage 1 through stage 4 chronic kidney disease, or unspecified chronic kidney disease; E11.22 Type 2 diabetes mellitus with diabetic chronic kidney disease; N18.9 Chronic kidney disease, unspecified; Z88.0 Allergy status to penicillin; Z79.4 Long term (current) use of insulin; Z79.899 Other long term (current) drug therapy
CPT/HCPCS: 36415; 80053; 85025; 99284; S0119

== ENCOUNTER 2017-01-15 11:49 | Emergency (ER) | payer OTHER, BC ==
[~2017-01-15] VITALS: Ht 167.6 cm; Wt 86.2 kg
[~2017-01-15 11:49] MED LIST changes: +CLARITIN10 M1 PO; +CLINDAMYCIN150 MG PO; +CRESTOR5 MG PO; -FLONAS NS; +FLONASE NASAL50 MCG NS; -FLOR250 PO; +FLORASTOR250 MG PO; -IMO2 PO; +IMODIUM2 M1 PO; -INSU10SU8 SUBQ; +LEVAQUIN250 MG PO; +LEVAQUIN500 MG PO; +LEVAQUIN750 MG PO; -LEVO750T2 PO; -LORA10TA19 PO; -METO50TE2 PO; -NEP PO; +NEPHRO-VITE1 TA1 PO; -NIFE60TE5 PO; +NOVOLIN 70/30 710 M1 SUBQ; -PHO667 PO; +PHOSLO667 M1 PO; -PNE23I IMVAC; +PNEUMOVAX IMVAC; +PROCARDIA XL60 MG PO; +TOPROL XL50 MG PO; +ZITHROMAX Z-PA250 M1 PO
[2017-01-15 11:53] VITALS: BP 181/83
[2017-01-15] MEDS: FAMOTIDINE 20 MG TAB PO ONE (12:50)
[2017-01-15] MEDS: ONDANSETRON 4 MG ODT PO ONE (12:50)
[2017-01-15] MEDS: ACETAMINOPHEN 325 MG TAB PO ONE (12:50)
[2017-01-15 14:07] VITALS: BP 173/82
== END 2017-01-15 14:06 | disposition home or self-care (01) ==
LOC: MED 11:49
DX: A08.4 Viral intestinal infection, unspecified (principal); I12.0 Hypertensive chronic kidney disease with stage 5 chronic kidney disease or end stage renal disease; E11.22 Type 2 diabetes mellitus with diabetic chronic kidney disease; N18.6 End stage renal disease; Z99.2 Dependence on renal dialysis; J44.9 Chronic obstructive pulmonary disease, unspecified; Z88.0 Allergy status to penicillin; Z79.4 Long term (current) use of insulin; Z79.899 Other long term (current) drug therapy
CPT/HCPCS: 36415; 80053; 85025; 93005; 99285; S0119

== ENCOUNTER 2017-01-19 17:20 | Emergency (ER) | payer OTHER, BC ==
[~2017-01-19] VITALS: Ht 167.6 cm; Wt 90.7 kg
[~2017-01-19 17:20] MED LIST changes: -CLARITIN10 M1 PO; -CLINDAMYCIN150 MG PO; -CRESTOR5 MG PO; +FLONAS NS; -FLONASE NASAL50 MCG NS; +FLOR250 PO; -FLORASTOR250 MG PO; +IMO2 PO; -IMODIUM2 M1 PO; +INSU10SU8 SUBQ; -LEVAQUIN250 MG PO; -LEVAQUIN500 MG PO; -LEVAQUIN750 MG PO; +LEVO750T2 PO; +LORA10TA19 PO; +METO50TE2 PO; +NEP PO; -NEPHRO-VITE1 TA1 PO; +NIFE60TE5 PO; -NOVOLIN 70/30 710 M1 SUBQ; +PHO667 PO; -PHOSLO667 M1 PO; +PNE23I IMVAC; -PNEUMOVAX IMVAC; -PROCARDIA XL60 MG PO; -TOPROL XL50 MG PO; -ZITHROMAX Z-PA250 M1 PO
--- NOTE | 2017-01-19 17:20 | NUR ---
Patient BIBA BLS, transferred to bed 3. RN evaluating patient at bedside.
--- NOTE | 2017-01-19 17:21 | NUR ---
PT BIBA FOR EVALUATION OF HEADACHE & N/V SINCE LAST NOC. HX DM, HTN, COPD & ESRD WITH HD. PT STATES VOMITING X 1 EPISODE THIS AM; WATERY . DENIES DIARRHEA; PT HAD HD ON M,W & F; SHUNT MONA BRUIT&THRILL. AAOX4 WITH EVEN AND UNSTEADY GAIT; LUNGS CLEAR BL; HR EVEN AND REGULAR; PT DENIES ANY FEVER, CP, SOB, OR COUGH AT THIS TIME; PATIENT STATES PAIN OF 5/10 AT THIS TIME. Addendum: 01/19/17 at 1745 by [email or web address] PT REFUSED TO CHECK SKIN. PT STS i CHECKED THIS AM ,MYSKIN NO PROBLEM, NO SWELLING."
[2017-01-19 17:22] VITALS: BP 190/100
--- NOTE | 2017-01-19 17:25 | NUR ---
PT REFUSED TO SIT ON BED AND TO PUT ON HOSPITAL GOWN X3.
--- NOTE | 2017-01-19 18:07 | NUR ---
Patient being evaluated by DR MACIAS at bedside.
--- NOTE | 2017-01-19 18:12 | NUR ---
PT STS " I HAVE DIARRHEA ON & OFF ALL DAY, JUST STOP THIS MORNING BECAUSE I DON'T EAT ANYTHING ALL TAY."
[2017-01-19 18:50] LABS: BASOPHILS # (AUTO) 0.1 K/uL (0.00-0.22); BASOPHILS % (AUTO) 1.4 % (0.0-2.0); EOSINOPHILS # (AUTO) 0.7 K/uL (0-0.4); EOSINOPHILS % (AUTO) 6.7 % (0.0-4.0); HEMATOCRIT 32.8 % (36-52); HEMOGLOBIN 10.9 g/dL (12.0-18.0); LYMPHOCYTES # (AUTO) 1.2 K/uL (2.0-11.5); LYMPHOCYTES % (AUTO) 11.5 % (20.5-51.1); MEAN CORPUSCULAR HEMOGLOBIN 34 pg (27-31); MEAN CORPUSCULAR HGB CONC 33 g/dL (33-37); MEAN CORPUSCULAR VOLUME 102 fL (80-94); MONOCYTES # (AUTO) 0.9 K/uL (0.8-1.0); MONOCYTES % (AUTO) 9.1 % (1.7-9.3); NEUTROPHILS # (AUTO) 7.3 K/uL (1.8-7.7); NEUTROPHILS % (AUTO) 71.3 % (42.2-75.2); PLATELET COUNT (AUTO) 228 K/uL (140-450); RED BLOOD CELL COUNT(AUTO) 3.22 MIL/uL (4.20-6.10); RED CELL DISTRIBUTION WIDTH 14.4 % (11.6-13.7); WHITE BLOOD COUNT (AUTO) 10.2 K/uL (4.8-10.8)
--- NOTE | 2017-01-19 18:51 | NUR ---
OFFERED BLANKET .PT STS "NO I DON'T WANT, I'M FINE."
--- NOTE | 2017-01-19 18:56 | NUR ---
PT AMB WITH CANE TO RESTROOM.
--- NOTE | 2017-01-19 19:06 | NUR ---
Pt report given to IMANI MOELLER/ IMANI LOWERY. Transfer of care at this time.
[2017-01-19 19:07] LABS: ALBUMIN 3.7 g/dL (3.4-5.0); ANION GAP 19.9 (8-16); CARBON DIOXIDE 23.4 mmol/L (21-32); POTASSIUM 5.3 mmol/L (3.5-5.1); TOTAL BILIRUBIN 0.2 mg/dL (0.0-1.0)
[2017-01-19 19:11] LABS: CREATININE 9.5 mg/dL (0.7-1.3)
--- NOTE | 2017-01-19 19:47 | NUR ---
Dr. Molina evaluating patient at bedside.
[2017-01-19] MEDS ORDERED: SODIUM POLYSTYRENE 15 GM/60 ML UDBTL PO ONE (20:20)
[2017-01-19 20:53] VITALS: BP 175/89
--- NOTE | 2017-01-19 20:53 | NUR ---
Patient discharged with v/s stable. Written and verbal after care instructions given and explained. Patient alert, oriented and verbalized understanding of instructions. Ambulatory with steady gait. All questions addressed prior to discharge. ID band removed. Patient advised to follow up with PMD. Rx of Kayexalate 453.6g powder given. Pt waiting in lobby at this time. Patient educated on indication of medication including possible reaction and side effects. Opportunity to ask questions provided and answered.
== END 2017-01-19 20:53 | disposition home or self-care (01) ==
LOC: MED 17:20
DX: E11.22 Type 2 diabetes mellitus with diabetic chronic kidney disease (principal); I12.0 Hypertensive chronic kidney disease with stage 5 chronic kidney disease or end stage renal disease; N18.6 End stage renal disease; Z99.2 Dependence on renal dialysis; E87.5 Hyperkalemia; D64.9 Anemia, unspecified; J44.9 Chronic obstructive pulmonary disease, unspecified; Z88.0 Allergy status to penicillin
CPT/HCPCS: 36415; 80053; 83690; 85025; 93005; 99285

== ENCOUNTER 2017-03-29 02:44 | Emergency (ER) | payer OTHER, BC ==
[~2017-03-29] VITALS: Ht 170.2 cm; Wt 90.7 kg
--- NOTE | 2017-03-29 02:44 | NUR ---
PT PLACED IN BED 10 BY EMS
[2017-03-29 02:50] VITALS: BP 184/82
--- NOTE | 2017-03-29 02:50 | NUR ---
PATIENT REFUSED GOWN, TO SIT ON BED, AND TO BE PLACED ON MONITOR
--- NOTE | 2017-03-29 02:55 | NUR ---
66/M BIBA FOR SOB X 1 HOUR AGO. AOX4. 20RR EVEN AND UNLABORED,96%RA, ALL LUNG SOUNDS CBTA, PT ABLE TO SPEAK AT FULL LENGTH WITHOUT DIFFICULTIES.72HR EVEN AND REGULAR. DENIES CP, ANY PAIN, N/V/D. PT STATES HE DOES NOT USE OXYGEN AT HOME, NO PRESCRIBED INHALERS/MEDS. PT STATES "I HAVE BEEN SEEN BY ALL OF THE HOSPITALS AROUND AND ALL THEY DO IS GIVE ME OXYGEN AND SEND ME HOME". PT HAS NOT BEEN SEEN BY PCP PER PT. PMH: COPD, DM, HTN, DENIES TAKING ANY RX/OTC. REFUSING TO LAY DOWN ON THE BED, WEAR GOWN AND PLACED ON MONITOR. PT SITTING ON THE CHAIR Addendum: 03/29/17 at 0339 by TRICE DENIES COUGHING
[2017-03-29] MEDS ORDERED: ALBUTEROL 0.083% 2.5 MG/3 ML NEBU INH ONE (03:55)
[2017-03-29] MEDS ORDERED: predniSONE 20 MG TAB PO ONE (03:55)
--- NOTE | 2017-03-29 04:16 | NUR ---
RT at bedside for breathing intervention.
[2017-03-29 04:22] LABS: BASOPHILS # (AUTO) 0.2 K/uL (0.00-0.22); EOSINOPHILS # (AUTO) 1.1 K/uL (0-0.4); EOSINOPHILS % (AUTO) 10.1 % (0.0-4.0); HEMATOCRIT 38.1 % (36-52); HEMOGLOBIN 12.4 g/dL (12.0-18.0); LYMPHOCYTES # (AUTO) 1.7 K/uL (2.0-11.5); LYMPHOCYTES % (AUTO) 15.1 % (20.5-51.1); MEAN CORPUSCULAR HEMOGLOBIN 33 pg (27-31); MEAN CORPUSCULAR HGB CONC 33 g/dL (33-37); MEAN CORPUSCULAR VOLUME 102 fL (80-94); MONOCYTES % (AUTO) 9.3 % (1.7-9.3); NEUTROPHILS # (AUTO) 7.1 K/uL (1.8-7.7); NEUTROPHILS % (AUTO) 63.5 % (42.2-75.2); PLATELET COUNT (AUTO) 214 K/uL (140-450); RED BLOOD CELL COUNT(AUTO) 3.73 MIL/uL (4.20-6.10); RED CELL DISTRIBUTION WIDTH 13.7 % (11.6-13.7); WHITE BLOOD COUNT (AUTO) 11.1 K/uL (4.8-10.8)
--- NOTE | 2017-03-29 04:23 | NUR ---
XRAY AT BEDSIDE
[2017-03-29 04:36] LABS: ALBUMIN 3.5 g/dL (3.4-5.0); ANION GAP 18.1 (8-16); CARBON DIOXIDE 25.1 mmol/L (21-32); POTASSIUM 4.2 mmol/L (3.5-5.1); TOTAL BILIRUBIN 0.4 mg/dL (0.0-1.0)
[2017-03-29 04:41] LABS: CREATININE 7.8 mg/dL (0.7-1.3)
--- NOTE | 2017-03-29 05:45 | NUR ---
Patient discharged with v/s stable. Written and verbal after care instructions given and explained. Patient alert, oriented and verbalized understanding of instructions. Ambulatory with steady gait. All questions addressed prior to discharge. ID band removed. Patient advised to follow up with PMD. Rx of ALBUTEROL HHN given. Patient educated on indication of medication including possible reaction and side effects. Opportunity to ask questions provided and answered.
[2017-03-29 05:48] VITALS: BP 138/76
== END 2017-03-29 05:45 | disposition home or self-care (01) ==
LOC: MED 02:44
DX: J44.1 Chronic obstructive pulmonary disease with (acute) exacerbation (principal); I12.9 Hypertensive chronic kidney disease with stage 1 through stage 4 chronic kidney disease, or unspecified chronic kidney disease; E11.22 Type 2 diabetes mellitus with diabetic chronic kidney disease; N18.9 Chronic kidney disease, unspecified; Z88.0 Allergy status to penicillin
CPT/HCPCS: 36415; 71010; 80053; 83880; 84484; 85025; 85379; 93005; 94640; 94760; 99285; J7512; J7613; Q0092

== ENCOUNTER 2017-04-02 12:35 | Emergency (ER) | payer OTHER, BC ==
[~2017-04-02] VITALS: Ht 167.6 cm; Wt 90.7 kg
[2017-04-02 13:00] VITALS: BP 156/63
--- NOTE | 2017-04-02 13:10 | NUR ---
NOTIIFED ER MD CARTER THAT PT PULSE OX=82% ON RA
--- NOTE | 2017-04-02 13:11 | NUR ---
66/M BIB BROTHER C/O LEFT LEG PAIN D/T TO INJURY X 5-6 DAYS; PT AMA FROM [facility] [place] TODAY--PT STS WAS DX WITH FEMUR FRACTURE. HX--HTN DM ESRF (DIALYSIS M,W,F). HD SHUNT MONA BRUIT & TRILL.AAOX4 LUNGS CLEAR BL; PT DENIES ANY FEVER, CP, SOB, OR COUGH AT THIS TIME; PATIENT STATES PAIN OF 10/10 AT THIS TIME; PATIENT POSITIONED FOR COMFORT; HOB ELEVATED; BEDRAILS UP X2; BED DOWN. ER MADE AWARE OF PT STATUS. Addendum: 04/02/17 at 1436 by [email or web address] PT STATED GOT SURGERY LEFT LEG X 3 DAYS AGO.WOUND COVER WITH DRY DRESSING .
--- NOTE | 2017-04-02 13:23 | NUR ---
LAB AT BEDSIDE.
[2017-04-02 13:24] LABS: HEMATOCRIT 32.1 % (36-52); HEMOGLOBIN 10.6 g/dL (12.0-18.0); MEAN CORPUSCULAR HEMOGLOBIN 34 pg (27-31); MEAN CORPUSCULAR HGB CONC 33 g/dL (33-37); MEAN CORPUSCULAR VOLUME 103 fL (80-94); PLATELET COUNT (AUTO) 235 K/uL (140-450); RED BLOOD CELL COUNT(AUTO) 3.13 MIL/uL (4.20-6.10); RED CELL DISTRIBUTION WIDTH 13.3 % (11.6-13.7); WHITE BLOOD COUNT (AUTO) 20.3 K/uL (4.8-10.8)
--- NOTE | 2017-04-02 13:24 | NUR ---
PT TAKEN TO [facility] [employer] ACCOMPANIED BY [employer].
[2017-04-02 13:41] LABS: EOSINOPHILS % (MANUAL) 1 % (0-4); LYMPHOCYTES % (MANUAL) 1 % (20-46); MONOCYTES % (MANUAL) 10 % (5-12); PROTHROMBIN TIME 10.2 secs (10.8-13.4)
[2017-04-02 13:44] LABS: ALBUMIN 2.9 g/dL (3.4-5.0); ANION GAP 20.4 (8-16); CARBON DIOXIDE 24.2 mmol/L (21-32); POTASSIUM 4.6 mmol/L (3.5-5.1); TOTAL BILIRUBIN 0.4 mg/dL (0.0-1.0)
[2017-04-02 13:47] LABS: CREATININE 9.6 mg/dL (0.7-1.3)
--- NOTE | 2017-04-02 13:52 | NUR ---
PT BACK FROM [facility], ACCOMPANIED BY [employer].
[2017-04-02] MEDS ORDERED: MORPHINE SULFATE 4 MG/ML SYR IVP ONE (14:00)
--- NOTE | 2017-04-02 15:00 | NUR ---
Patient being evaluated by DR RODRÍGUEZ at bedside.
[2017-04-02 15:34] VITALS: BP 176/81
--- NOTE | 2017-04-02 15:35 | NUR ---
Patient discharged with BP 176/81; BRANDY OCHOA MD MADE AWARE. Written and verbal after care instructions given and explained. Patient alert, oriented and verbalized understanding of instructions. Wheel Chair Assisted with to car. All questions addressed prior to discharge. ID band removed. Patient advised to follow up with PMD. Rx of NORCO given. Patient educated on indication of medication including possible reaction and side effects. Opportunity to ask questions provided and answered.
== END 2017-04-02 15:35 | disposition home or self-care (01) ==
LOC: MED 12:35
DX: M25.552 Pain in left hip (principal); J44.9 Chronic obstructive pulmonary disease, unspecified; I12.9 Hypertensive chronic kidney disease with stage 1 through stage 4 chronic kidney disease, or unspecified chronic kidney disease; E11.22 Type 2 diabetes mellitus with diabetic chronic kidney disease; N18.9 Chronic kidney disease, unspecified; Z79.899 Other long term (current) drug therapy; Z88.0 Allergy status to penicillin; Z79.4 Long term (current) use of insulin
CPT/HCPCS: 36415; 71010; 73552; 80053; 83880; 84484; 85025; 85610; 85730; 93005; 96374; 99285; J2270